=== PATIENT | female | born 1935 | race Caucasian/White ===

== ENCOUNTER → 2018-10-17 | Outpatient (CLI) | payer MEDICARE | END | disposition home or self-care (01) | LOC: PCVCCLINIC 14:34 | PROVIDERS: ATTEND Internal Medicine Cardiovascular Disease | DX: I10 Essential (primary) hypertension (principal); R06.09 Other forms of dyspnea; E78.00 Pure hypercholesterolemia, unspecified; R60.9 Edema, unspecified; M19.90 Unspecified osteoarthritis, unspecified site; E03.9 Hypothyroidism, unspecified; Z79.82 Long term (current) use of aspirin | CPT/HCPCS: 93005; G0463 ==

== ENCOUNTER → 2018-11-07 | Outpatient (CLI) | payer MEDICARE ==
[~2018-11-07] MED LIST: REGADENOSON 0.4 MG/5 ML DISP.SYRIN. IV ONE
--- NOTE | 2018-11-07 10:08 | PCVCIMAG ---
APPROVED REPORT Study performed: 11/07/2018 07:38:21 EXAM: Comprehensive 2D, Doppler, and color-flow Echocardiogram Patient Location: Echo lab Status: routine BSA: 1.72 HR: 51 bpmBP: 130/78 mmHg Rhythm: Bradycardia, LBBB Other Information Study Quality: Adequate Risk Factors: Cardiac Risk Factors: HTN, Hyperlipidemia Indications Dyspnea LBBB 2D Dimensions IVSd: 11.50 (7-11mm) LVDd: 38.07 mm PWd: 10.13 (7-11mm)Ascending Ao: 27.79 (22-36mm) LVDs: 30.25 (25-40mm) Left Atrium: 40.09 (27-40mm) Aortic Root: 28.05 mm LV Single Plane 4CH: 62.67 % LV Single Plane 2CH: 62.73 % Biplane EF: 61.6 % Volumes Left Atrial Volume (Systole) Single Plane 4CH: 43.91 mLSingle Plane 2CH: 66.33 mL LA ESV Index: 33.00 mL/m2 Aortic Valve AoV Peak Gary.: 2.03 m/s AO Peak Gr.: 16.47 mmHgLVOT Max P.53 mmHg LVOT Max V: 0.94 m/s Mitral Valve E/A Ratio: 1.1 MV Decel. Time: 244.16 ms MV E Max Gary.: 1.03 m/s MV A Gary.: 0.96 m/s IVRT: 114.19 ms Pulmonary Valve PV Peak Gary.: 0.94 m/sPV Peak Gr.: 3.53 mmHg Pulmonary Vein P Vein S: 0.37 m/sP Vein A: 0.36 m/s P Vein D: 0.73 m/sP Vein A Dur.: 148.8 msec P Vein S/D Ratio: 0.51 Tricuspid Valve TR Peak Gary.: 2.82 m/s TR Peak Gr.: 31.87 mmHg Left Ventricle The left ventricle is normal size. There is normal LV segmental wall motion. There is normal left ventricular wall thickness. Left ventricular systolic function is normal. The left ventricular ejection fraction is within the normal range. LVEF is 60-65%. Grade II - pseudonormal filling dynamics. Right Ventricle The right ventricle is normal size. The right ventricular systolic function is normal. Atria Left atrium is at the upper limits of normal. The right atrium size is normal. Aortic Valve The aortic valve is mildly calcified. Mild aortic regurgitation. There is no aortic valvular stenosis. Mitral Valve The mitral valve is normal in structure. Mild to moderate mitral regurgitation. No evidence of mitral valve stenosis. Tricuspid Valve The tricuspid valve is normal in structure. Mild tricuspid regurgitation with PAP of 39 mmHg. Pulmonic Valve The pulmonary valve is normal in structure. There is no pulmonic valvular regurgitation. Great Vessels The aortic root is normal in size. IVC is normal in size and collapses >50% with inspiration. Pericardium There is no pericardial effusion. There is no pleural effusion. <Conclusion> The left ventricle is normal size. There is normal left ventricular wall thickness. Left ventricular systolic function is normal. Grade II - pseudonormal filling dynamics. The right ventricle is normal size. Left atrium is at the upper limits of normal. The aortic valve is mildly calcified. Mild aortic regurgitation. Mild to moderate mitral regurgitation. Mild tricuspid regurgitation with PAP of 39 mmHg.
--- NOTE | 2018-11-07 11:44 | PCVCIMAG ---
APPROVED REPORT Imaging Protocol: Rest Tc-99m/Stress Tc-99m 1 day Study performed: 11/07/2018 09:28:30 Indication: Dyspnea, LBBB Patient Location: Out-Patient Stress Nurse: Sangita Vivas RN, Leda Naranjo RN [place] Tech:Eleonora MARY StackMT Ht: 5 ft 2 in Wt: 156 lbs BSA: 1.72 m2 HR: 48 bpm BP: 175/74 mmHg BMI: 28.52 Rhythm: Sinus Bradycardia, LBBB Medical History Medical History: HTN, Hyperlipidemia Medications: ASA, Irbesartan, Maxide, Propranolol, Simvastatin Allergies: Nexium Cardiac Risk Factors: Age Pretest Chest Pain Characteristics: No chest pain Meds Held (24 hrs): Pt chose to hold all meds this am Resting Data Rest SPECT myocardial perfusion imaging was performed in supine position 45 minutes following the intravenous injection of 11 mCi of Tc-99m Sestamibi. Time of rest injection: 0845 Date: 11/07/2018 Administration Route: IV Administration Site: Right Hand Pharmacologic Stress Pharmacologic stress test was performed by injecting Regadenoson 0.4 mg IV push over 10-15 seconds immediately followed by the intravenous injection of 34.4 mCi of Tc-99m Sestamibi. Time of stress injection: 1000 Date: 11/07/2018 Administration Route: IV Administration Site: Right Hand Gated Stress SPECT was performed 45 minutes after stress injection. The images were gated to evaluate regional wall motion and calculate left ventricular ejection fraction. Stress Test Details Stress Test: Pharmacologic stress testing performed using 0.4 mg of regadenoson per 5 mL given IV over 10 seconds. Reason for pharmacologic stress test: Arthritic knees, uses a cane. HRMax Heart Rate (APMHR): 136 bpm Resting HR: 48 bpmTarget HR (85% APMHR): 115 bpm Max HR Achieved: 85 bpm % of APMHR: 62 Recovery HR: 77 bpm BP Resting BP: 175/74 mmHg Max BP: 155/69 mmHg Recovery BP: 144/63 mmHg ECG Resting ECG: Sinus Bradycardia, LBBB Stress ECG: Sinus Rhythm, LBBB ST Change: Nondiagnostic due to LBBB Recovery ECG: Sinus Rhythm, LBBB Clinical Reason for Termination: Completed protocol Stress Symptoms: Abdominal discomfort, Lightheaded, Nausea, Headache Exercise duration: 0 min 55 sec Symptoms resolved with caffeine. Study Quality Study: Good Artifact: Mild Soft tissue attenuation artifact Study Data Post stress, the left ventricular ejection was 80%.. SSS: 0 SRS: 1 SDS: 0 Perfusion There is a small area of mildly reduced uptake in the distal segment of the anterior wall which is seen on the stress images as well as the resting images. This area thickens and moves normally and is most consistent with attenuation artifact. Wall Motion Normal left ventricular wall motion. Nuclear Conclusion ECG Findings: non-diagnostic Clinical Findings: non-diagnostic Nuclear Findings: negative for ischemia Exercise Capacity: not assessed Left Ventricular Function: normal Risk Study: low This study is of low probability for inducible ischemia or prior infarct. Normal global and segmental LV systolic function. Artifact: Mild Soft tissue attenuation artifact
== END | disposition home or self-care (01) ==
LOC: PCVCIMAG 10:14
PROVIDERS: ATTEND Internal Medicine Cardiovascular Disease
DX: I08.3 Combined rheumatic disorders of mitral, aortic and tricuspid valves (principal); I11.0 Hypertensive heart disease with heart failure; I50.9 Heart failure, unspecified; R06.00 Dyspnea, unspecified; M19.90 Unspecified osteoarthritis, unspecified site; E78.00 Pure hypercholesterolemia, unspecified; R60.0 Localized edema; I44.7 Left bundle-branch block, unspecified; Z79.82 Long term (current) use of aspirin
CPT/HCPCS: 78452; 93017; 93306; A9500; J2785